=== PATIENT | male | born 1960 | race American Indian/Alaskan Native ===

== ENCOUNTER 2021-07-21 10:35 | Outpatient (CLI) | payer OTHER ==
--- NOTE | 2021-07-21 13:06 | XRay Report ---
Bilateral hands INDICATION: Hand pain FINDINGS: MCP joints and IP joints appear intact. Carpal bone alignment appears normal bilaterally. N o acute fracture is seen. Signer Name: Kendrick Park MD Signed: 07/21/2021 1:02 PM Workstation Name: [id number]
== END 2021-07-21 10:36 | disposition home or self-care (01) ==
LOC: XRAY 10:35
PROVIDERS: ATTEND Internal Medicine
DX: M79.642 Pain in left hand (principal); M79.641 Pain in right hand